=== PATIENT | male | born 1960 | race Caucasian/White ===

== ENCOUNTER 2016-08-10 17:57 | Inpatient (IN) | payer OTHER, BC ==
[~2016-08-10] VITALS: Ht 180.3 cm; Wt 83.6 kg
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
[~2016-08-10 17:57] MED LIST: ALDACTONE25 MG PO; CENTRUM SILVER1 EAC2 PO; COLACE100 MG PO; CONSTULOSE10 GM/15 M PO; FUROSEMIDE 20 M20 MG PO; IRON325 PO; MILK THISTLE200 M1 PO; ONDANSETRON HCL4 M2 PO; PRILOSEC 20 MG20 MG PO; VITAMINC500 PO; XIFAXAN 200 MG200 MG PO
[2016-08-10 18:19] VITALS: BP 103/63
[2016-08-10 19:25] LABS: HEMATOCRIT 28.1 % (42.0-52.0); HEMOGLOBIN 9.2 gm/dL (14.0-18.0); MCH 27.8 pg (26.0-34.0); MCHC 32.7 g/dL (28.0-37.0); MCV 84.9 fL (80.0-100.0); PLATELET COUNT 191 thou/uL (150-400); RBC 3.31 mil/uL (4.50-6.00); RDW 17.5 % (10.5-14.5); WBC 18.1 thou/uL (4.0-11.0)
[2016-08-10 19:29] LABS: MANUAL DIFF YES
[2016-08-10 19:35] LABS: CALCIUM 8.3 mg/dL (8.5-10.1); MAGNESIUM 2.1 mg/dL (1.8-2.4); POTASSIUM 5.4 mmol/L (3.5-5.1)
[2016-08-10 19:49] LABS: ABSOLUTE NEUTROPHILS 14.8 thou/uL (1.4-8.2); POLYCHROMASIA 1+; TOTAL CELL COUNT 100
[2016-08-10 19:50] LABS: ANISOCYTOSIS 1+
[2016-08-10 21:03] VITALS: BP 110/62
[2016-08-10 21:20] VITALS: BP 118/71
[2016-08-10] MEDS ORDERED: CENTRUM SILVER1 EACH PO (22:33)
[2016-08-10] MEDS ORDERED: MSL20MG/ML PO (22:36)
[2016-08-10] MEDS ORDERED: MORPHINE S10 MG/5 M2 PO (22:40)
[2016-08-11 05:32] LABS: CALCIUM 8.1 mg/dL (8.5-10.1); CREATININE 0.9 mg/dL (0.6-1.3); POTASSIUM 5.4 mmol/L (3.5-5.1)
[2016-08-11 05:34] LABS: INR 1.3; PROTIME 13.5 Seconds (9.3-11.4)
[2016-08-11 08:29] VITALS: BP 97/62
[2016-08-11 11:30] VITALS: BP 94/55
[2016-08-11 16:19] VITALS: BP 99/64
[2016-08-11 21:30] VITALS: BP 85/47
[2016-08-12 04:55] VITALS: BP 95/57
[2016-08-12 06:10] LABS: CALCIUM 7.8 mg/dL (8.5-10.1); CREATININE 0.7 mg/dL (0.6-1.3); POTASSIUM 5.5 mmol/L (3.5-5.1)
[2016-08-12 08:56] VITALS: BP 85/52
[2016-08-12 11:49] VITALS: BP 100/65
[2016-08-12 16:26] VITALS: BP 127/77
[2016-08-12 20:30] VITALS: BP 105/58
[2016-08-13 04:59] VITALS: BP 107/64
[2016-08-13 06:49] LABS: CALCIUM 7.6 mg/dL (8.5-10.1); CREATININE 0.7 mg/dL (0.6-1.3); POTASSIUM 5.2 mmol/L (3.5-5.1)
[2016-08-13 08:00] VITALS: BP 115/67
[2016-08-13 16:00] VITALS: BP 102/64
[2016-08-13 18:38] LABS: CALCIUM 7.8 mg/dL (8.5-10.1); CREATININE 0.8 mg/dL (0.6-1.3); POTASSIUM 4.8 mmol/L (3.5-5.1)
[2016-08-13 20:25] VITALS: BP 114/70
[2016-08-14 03:05] VITALS: BP 81/43
[2016-08-14 05:39] LABS: ALBUMIN 1.5 g/dL (3.4-5.0); CALCIUM 7.9 mg/dL (8.5-10.1); CREATININE 0.6 mg/dL (0.6-1.3); PHOSPHORUS 3.9 mg/dL (2.5-4.9); POTASSIUM 5.1 mmol/L (3.5-5.1)
[2016-08-14 07:39] VITALS: BP 113/71
[2016-08-14 10:36] VITALS: BP 135/87
[2016-08-14 16:11] VITALS: BP 109/69
[2016-08-14 16:44] LABS: CREATININE 0.7 mg/dL (0.6-1.3); POTASSIUM 5.7 mmol/L (3.5-5.1)
[2016-08-14 19:30] VITALS: BP 117/78
[2016-08-15 04:30] VITALS: BP 109/70
[2016-08-15 06:40] LABS: ALBUMIN 1.5 g/dL (3.4-5.0); CALCIUM 7.9 mg/dL (8.5-10.1); CREATININE 0.7 mg/dL (0.6-1.3); POTASSIUM 5.1 mmol/L (3.5-5.1)
[2016-08-15 08:08] VITALS: BP 112/65
[2016-08-15 10:31] VITALS: BP 112/65
== END 2016-08-15 11:31 | disposition home or self-care (01) | DRG 643 ==
LOC: ER 17:57 → EROBS 19:45 → 4S 19:45
PROVIDERS: Emergency Medicine; Family Medicine; Hospitalist; Nurse Practitioner Acute Care
DX: E22.2 Syndrome of inappropriate secretion of antidiuretic hormone (principal); E43 Unspecified severe protein-calorie malnutrition; C22.0 Liver cell carcinoma; K74.60 Unspecified cirrhosis of liver; I10 Essential (primary) hypertension; D63.8 Anemia in other chronic diseases classified elsewhere; B19.20 Unspecified viral hepatitis C without hepatic coma; F17.210 Nicotine dependence, cigarettes, uncomplicated; E66.9 Obesity, unspecified; Z68.25 Body mass index [BMI] 25.0-25.9, adult
CPT/HCPCS: 10100

== ENCOUNTER 2016-11-14 10:47 | Inpatient (IN) | payer OTHER, BC ==
[~2016-11-14] VITALS: Ht 180.3 cm; Wt 78.5 kg
--- NOTE | ~2016-11-14 | EKG ---
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 : 1960 Requested By: Lovely Alvarado Order Number: [id number] MD: Isai Manzano Measurements Intervals [place] Rate: 86 P: 81 NC: 156 QRS: 36 QRSD: 117 T: 35 QT: 345 QTc: 413 Interpretive Statements Sinus rhythm Nonspecific intraventricular conduction delay Compared to ECG 07/21/2016 17:48:02 Intraventricular conduction delay now present Sinus tachycardia no longer present Atrial premature complex(es) no longer present Electronically Signed On 11-15-2016 8:23:31 CDT by Isai Manzano [email or web address] <ELECTRONICALLY SIGNED> By: Isai Manzano MD, [facility] 11/15/16 0823 1419 1419 Isai Manzano MD, [facility] /EPI
[~2016-11-14 10:47] MED LIST changes: +CENTRUM SILVER1 EACH PO; +MORPHINE S10 MG/5 M2 PO; +MSL20MG/ML PO
[2016-11-14 12:30] VITALS: BP 118/74
[2016-11-14] MEDS ORDERED: LASIX 20 MG TAB20 MG PO (12:34)
[2016-11-14] MEDS ORDERED: ALDACTONE25 MG PO (12:36)
[2016-11-14 14:09] LABS: CALCIUM 8.7 mg/dL (8.5-10.1); CREATININE 1.4 mg/dL (0.7-1.3); POTASSIUM 5.6 mmol/L (3.5-5.1); TOTAL BILIRUBIN 1.2 mg/dL (<0.1-1.0); TOTAL PROTEIN 6.6 g/dL (6.4-8.2)
[2016-11-14 15:48] VITALS: BP 113/70
[2016-11-14 19:13] VITALS: BP 119/75
[2016-11-14 19:18] LABS: URINE BILIRUBIN NEGATIVE (Negative); URINE BLOOD NEGATIVE (Negative); URINE COLOR YELLOW; URINE GLUCOSE-RANDOM* NEGATIVE (Negative); URINE KETONES TRACE (Negative); URINE NITRITE NEGATIVE (Negative); URINE PROTEIN (DIPSTICK) TRACE (Negative); URINE SPECIFIC GRAVITY 1.025 (1.003-1.035)
[2016-11-15 04:25] VITALS: BP 99/63
[2016-11-15 06:35] LABS: HEMATOCRIT 37.3 % (42.0-52.0); HEMOGLOBIN 12.5 gm/dL (14.0-18.0); MCH 29.2 pg (26.0-34.0); MCHC 33.4 g/dL (28.0-37.0); MCV 87.3 fL (80.0-100.0); PLATELET COUNT 200 thou/uL (150-400); RBC 4.27 mil/uL (4.50-6.00); RDW 20.3 % (10.5-14.5); WBC 11.1 thou/uL (4.0-11.0)
[2016-11-15 06:42] LABS: MANUAL DIFF YES
[2016-11-15 06:57] LABS: ALBUMIN 1.8 g/dL (3.4-5.0); CALCIUM 8.1 mg/dL (8.5-10.1); CREATININE 1.3 mg/dL (0.7-1.3); TOTAL PROTEIN 5.9 g/dL (6.4-8.2)
[2016-11-15 07:03] LABS: POTASSIUM 5.5 mmol/L (3.5-5.1)
[2016-11-15 08:12] LABS: ANISOCYTOSIS 2+; TOTAL CELL COUNT 100
[2016-11-15 09:42] VITALS: BP 106/66
[2016-11-15 17:15] VITALS: BP 112/74
[2016-11-15 19:30] VITALS: BP 101/64
[2016-11-16 05:00] VITALS: BP 93/57
[2016-11-16 05:58] LABS: HEMATOCRIT 36.6 % (42.0-52.0); HEMOGLOBIN 12.3 gm/dL (14.0-18.0); MCH 29.7 pg (26.0-34.0); MCHC 33.5 g/dL (28.0-37.0); MCV 88.6 fL (80.0-100.0); RBC 4.13 mil/uL (4.50-6.00); RDW 19.4 % (10.5-14.5); WBC 10.1 thou/uL (4.0-11.0)
[2016-11-16 06:11] LABS: ALBUMIN 1.7 g/dL (3.4-5.0); CREATININE 1.1 mg/dL (0.7-1.3); PHOSPHORUS 3.4 mg/dL (2.5-4.9)
[2016-11-16 08:00] VITALS: BP 103/65
[2016-11-16] MEDS ORDERED: LASIX 40 MG TAB40 MG PO (10:56)
[2016-11-16 12:15] VITALS: BP 103/65
== END 2016-11-16 13:05 | disposition home or self-care (01) | DRG 432 ==
LOC: 4S 10:47
PROVIDERS: Internal Medicine; Internal Medicine Nephrology; Nurse Practitioner
DX: K74.60 Unspecified cirrhosis of liver (principal); E43 Unspecified severe protein-calorie malnutrition; N17.9 Acute kidney failure, unspecified; E87.1 Hypo-osmolality and hyponatremia; R18.8 Other ascites; J90 Pleural effusion, not elsewhere classified; C22.0 Liver cell carcinoma; F10.10 Alcohol abuse, uncomplicated; K72.90 Hepatic failure, unspecified without coma; E87.5 Hyperkalemia; I10 Essential (primary) hypertension; F17.210 Nicotine dependence, cigarettes, uncomplicated; D64.9 Anemia, unspecified; Z86.19 Personal history of other infectious and parasitic diseases; Z86.718 Personal history of other venous thrombosis and embolism; Z79.899 Other long term (current) drug therapy; Z71.6 Tobacco abuse counseling
CPT/HCPCS: 10102

== ENCOUNTER 2016-11-26 02:05 | Inpatient (IN) | payer OTHER, BC ==
[~2016-11-26] VITALS: Ht 180.3 cm; Wt 72.1 kg
--- NOTE | ~2016-11-26 | EKG ---
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
[~2016-11-26 02:05] MED LIST changes: +LASIX 20 MG TAB20 MG PO; +LASIX 40 MG TAB40 MG PO
[2016-11-26 02:06] VITALS: BP 86/55
[2016-11-26 02:53] LABS: HEMATOCRIT 42.7 % (42.0-52.0); MCH 30.6 pg (26.0-34.0); MCHC 35.1 g/dL (28.0-37.0); MCV 87.1 fL (80.0-100.0); PLATELET COUNT 191 thou/uL (150-400); RBC 4.91 mil/uL (4.50-6.00); RDW 18.7 % (10.5-14.5); WBC 9.8 thou/uL (4.0-11.0)
[2016-11-26 03:04] LABS: CALCIUM 8.8 mg/dL (8.5-10.1); CREATININE 2.7 mg/dL (0.7-1.3); DIRECT BILIRUBIN 0.8 mg/dL (<0.1-0.3); TOTAL BILIRUBIN 1.7 mg/dL (<0.1-1.0); TOTAL PROTEIN 6.4 g/dL (6.4-8.2)
[2016-11-26 03:08] LABS: MANUAL DIFF YES; POTASSIUM 6.6 mmol/L (3.5-5.1)
[2016-11-26 04:14] LABS: ABSOLUTE NEUTROPHILS 9.1 thou/uL (1.4-8.2); ANISOCYTOSIS 2+; LARGE PLATELETS RARE; MACROCYTES 1+; MYELOCYTES 1 %; TOTAL CELL COUNT 100
[2016-11-26 04:19] VITALS: BP 105/68
[2016-11-26 04:25] VITALS: BP 102/73
[2016-11-26 07:33] LABS: INR 1.6; PROTIME 16.1 Seconds (9.3-11.4)
[2016-11-26 07:39] LABS: ALBUMIN 1.9 g/dL (3.4-5.0); CALCIUM 8.8 mg/dL (8.5-10.1); TOTAL BILIRUBIN 1.7 mg/dL (<0.1-1.0); TOTAL PROTEIN 6.3 g/dL (6.4-8.2)
[2016-11-26 07:46] LABS: POTASSIUM 5.4 mmol/L (3.5-5.1)
[2016-11-26 07:57] VITALS: BP 99/65
[2016-11-26 11:53] VITALS: BP 105/61
[2016-11-26 12:05] LABS: CALCIUM 8.9 mg/dL (8.5-10.1); CREATININE 3.3 mg/dL (0.7-1.3); POTASSIUM 5.9 mmol/L (3.5-5.1); TOTAL BILIRUBIN 1.8 mg/dL (<0.1-1.0); TOTAL PROTEIN 6.8 g/dL (6.4-8.2)
[2016-11-26 15:50] VITALS: BP 118/80
== END 2016-11-26 19:16 | disposition hospice, home (50) | DRG 441 ==
LOC: ER 02:05 → 4W 03:15 → EROBS 03:15 → 4W 04:18
PROVIDERS: Emergency Medicine; Nurse Practitioner Family
DX: K72.90 Hepatic failure, unspecified without coma (principal); G93.40 Encephalopathy, unspecified; K76.6 Portal hypertension; N17.9 Acute kidney failure, unspecified; E87.1 Hypo-osmolality and hyponatremia; C22.0 Liver cell carcinoma; J90 Pleural effusion, not elsewhere classified; E87.2 Acidosis; I95.9 Hypotension, unspecified; K70.30 Alcoholic cirrhosis of liver without ascites; F10.10 Alcohol abuse, uncomplicated; F17.210 Nicotine dependence, cigarettes, uncomplicated; E87.6 Hypokalemia; N18.9 Chronic kidney disease, unspecified; I12.9 Hypertensive chronic kidney disease with stage 1 through stage 4 chronic kidney disease, or unspecified chronic kidney disease; Z66 Do not resuscitate; Z79.899 Other long term (current) drug therapy
CPT/HCPCS: 10045